=== PATIENT | female | born 1935 | race Caucasian/White ===

== ENCOUNTER → 2017-02-23 | Outpatient (CLI) | payer MEDICARE ==
--- NOTE | 2017-02-23 15:45 | CT ---
EXAM DESCRIPTION: Abdomen/Pelvis w/Contrast CLINICAL HISTORY: 81 years Female, ABD PN COMPARISON: 01 January 2012 TECHNIQUE: Transaxial images were obtained with intravenous contrast medium without oral contrast media. Sagittal and coronal reconstruction was performed.This exam was performed according to our departmental dose-optimization program, which includes automated exposure control, adjustment of the mA and/or kV according to patient size and/or use of iterative reconstruction technique. FINDINGS: Multiple bilateral lower lobe pulmonary nodules are observed and are worrisome for metastatic neoplasm. The liver and spleen are normal in appearance. No biliary ductal dilatation is observed. The gallbladder is normal in appearance. No adrenal masses are detected. The pancreas is normal in appearance. Calcific atherosclerotic changes observed in the abdominal aorta without evidence of aneurysmal dilatation. Imaging of the kidneys reveals a simple cyst of the upper pole the left kidney. No hydronephrosis or mass is detected. An ostomy is observed in the left lower quadrant. No inguinal region abnormality is seen. Degenerative changes are seen in the lumbar spine. The patient is post hysterectomy. IMPRESSION: 1. Multiple lower lobe pulmonary nodules are observed and are worrisome for metastatic neoplasm. 2. An ostomy is observed in the left lower quadrant. Electronically signed by: Ray Biswas MD 02/23/2017 3:44 PM CDT
== END | disposition home or self-care (01) ==
LOC: CT 08:36
PROVIDERS: ATTEND General Practice
DX: R10.30 Lower abdominal pain, unspecified (principal)

== ENCOUNTER → 2017-03-07 | Outpatient (CLI) | payer MEDICARE, OTHER ==
--- NOTE | 2017-03-08 08:07 | CT ---
EXAM DESCRIPTION: Chest w/Contrast CLINICAL HISTORY: 81 years, Female, PULMONARY NODULES COMPARISON: January 01, 2012 TECHNIQUE: Thin-section axial CT images are obtained during rapid bolus administration of nonionic IV contrast media. Reconstructed MPR images are created and reviewed as well. This exam was performed according to our departmental dose-optimization program, which includes automated exposure control, adjustment of the mA and/or kV according to patient size and/or use of iterative reconstruction technique. FINDINGS: Previously noted small noncalcified bilateral pulmonary nodules are essentially stable and unchanged but there are numerous small new 2 to 5 mm pulmonary nodules evident in both lungs, more numerous on the right than the left. Evolving granulomatous changes are suspected but a superimposed new process cannot be completely excluded and follow-up examination is recommended. No infiltrates or effusions or large dominant masses or significant fibrotic or bullous lung disease is seen. Soft tissue images demonstrate a normal appearance of the thoracic inlet and mediastinum and hilar structures. No abnormal adenopathy is seen. No central endobronchial mass is noted. Liver is abnormal in the upper abdomen with at least two small areas of enhancement one adjacent to the dome of the liver in the right lobe and one in the superior aspect lateral segment left lobe suspicious for subtle arterial enhancing lesions that were not evident on previous [address] or MR examination with attention to the dome of the right lobe of the liver and lateral segment left lobe of the liver recommended for further evaluation. I suspect these areas will be difficult to evaluate sonographically. A stable approximate 1.8 cm cyst arising from the upper pole of the left kidney is unchanged from prior study. IMPRESSION: 1. Persistent small less than 6 mm noncalcified nodules both lungs, unchanged from 2012 or increased in size but numerous small additional 2-5 pulmonary nodules noncalcified in each lung that have developed since 2012 examination.2017 Fleischner Society recommendations for high-risk patient with this size nodules would be to consider a [address] follow-up examination for reevaluation but because this represents interval change and development of new nodules from prior study I would suggest follow-up examination earlier at 6-9 months. 2. New small areas of abnormal hepatic enhancement in the lateral dome of the right lobe of the liver in the superior aspect of the lateral segment left lobe of the liver, not evident on prior [address] or MRI examination for further evaluation recommended. 3. No infiltrative changes effusions or large dominant masses or adenopathy is noted. 4. Stable benign cyst upper pole of the left kidney. Electronically signed by: Pola Hill MD 03/08/2017 8:05 AM CDT
== END | disposition home or self-care (01) ==
LOC: CT 08:46
PROVIDERS: ATTEND General Practice
DX: R91.8 Other nonspecific abnormal finding of lung field (principal)

== ENCOUNTER → 2017-07-16 | Outpatient (CLI) | payer OTHER ==
--- NOTE | 2017-07-16 14:50 | CT ---
EXAM DESCRIPTION: Abdomen w/wo Contrast CLINICAL HISTORY: ABNORMAL IMAGING OF LIVER COMPARISON: None. TECHNIQUE: Spiral-axial scans at 5.0 mm intervals, from the diaphragms through the upper pelvis, before and after nonionic IV contrast, in 2 phases arterial and portal venous. No oral contrast. Coronal and sagittal 2.0 mm reconstructions. 10 minute 5 mm Delayed helical scans, liver through the upper pelvis. No adverse reactions. DLP 864.21 mGy-cm. This exam was performed according to our departmental CT dose-optimization program which includes automated exposure control, adjustment of the mA and/or kV according to patient size and/or use of iterative reconstruction technique; to reduce radiation dose to as low as reasonably achievable (ALARA). FINDINGS: Lung bases and pleura: Multiple bilateral subpleural soft tissue nodules. Lung scarring. No pleural effusion. Pacing wire in the right ventricle. Liver, stomach, adrenal glands, and spleen: The arterial phase, a lateral subcapsular enhancing peripheral lesion approximately 1 cm diameter is noted near the dome of the diaphragm (series 4, image 10. At almost the same level, there is a more central lesion approximately 5 mm diameter. Oval-shaped 11 mm lesion with central bright contrast enhancement slightly more inferior (image 13). Another small punctate lesion in the lateral subcapsular right lobe (image 18). Immediately subcapsular lesions in the inferior tip of the liver laterally and posterolaterally (image 32). These lesions are less than 1 cm diameter. All lesions appear to be at equilibrium on the venous phase indistinguishable from the liver parenchyma. Also not distinguishable on the 10 minute delayed images. Small lesion less than 5 mm diameter not enhancing in the right lobe may represent a cyst but too small to be resolved by CT. No new lesion seen on the portal venous or 10-minute delayed images of the liver. Other solid organs and the stomach are unremarkable. Pancreas/Gallbladder/Ducts: Common bile duct upper normal diameter, otherwise Negative. Kidneys and Ureters: Nonenhancing 2.2 cm mass, well-defined almazan and no fatty stranding projecting from the upper pole of the left kidney with Hounsfield density ranging +20-+30 before and after IV contrast. Remainder of the kidney and the right kidney are unremarkable. Mesentery: No free air or stranding. Aorta: Moderate atherosclerotic calcification distally and minimal ectasia. Also calcification of the origins of the major vessels originating from the aorta. Small Bowel: Included segments are not distended. Terminal Ileum/Cecum: Not visualized. Colon: Included segments minimally distended by fecal material. Descending segment colostomy. No evidence of obstruction. Spine: Spondylosis L3-4 L4-5 more than L2-3 with Schmorl's node. Narrowing of foramina at L4-5. Minimal levoscoliosis. Abdominal Wall/Back Soft Tissues: Left lower quadrant colostomy site contains minimal gas within the redundant segment in the subcutaneous tissue, no significant change from the prior study. IMPRESSION: 1. At least 5 punctate enhancing lesion seen on the arterial phase in the right lobe of the liver were not well seen on the prior study, but prior study contrast images were not arterial phase. These lesions reached contrast equilibrium with the remainder of the liver on portal venous phase and 10 minute delayed view. Not visualized on precontrast images. Not typical enhancement pattern for hemangioma. Cannot rule out metastases. Consider evaluation with hepatic ultrasound. 2. Dense left renal cyst stable. 3. No free air. Free fluid or bowel obstruction. Descending segment colostomy stable. 4. Multiple bilateral soft tissue pulmonary nodules. The nodules that are visible are stable in number and size. Electronically signed by: Roberto Carlos Marie MD 07/16/2017 2:49 PM CAD ENGINEER
== END | disposition home or self-care (01) ==
LOC: CT 09:00
PROVIDERS: ATTEND General Practice
DX: R93.2 Abnormal findings on diagnostic imaging of liver and biliary tract (principal)

== ENCOUNTER → 2018-12-25 | Outpatient (CLI) | payer OTHER ==
--- NOTE | 2018-12-25 11:27 | CT ---
EXAM DESCRIPTION: Head CLINICAL HISTORY: MEMORY LOSS COMPARISON: None available TECHNIQUE: Noncontrast head CT was performed with routine protocol. FINDINGS: Normal pinedo-white matter differentiation. Ventricles and sulci are large consistent with age-related cerebral volume loss. Low density areas in the periventricular white matter indicate chronic microvascular ischemic disease. Mild motion degradation. No high density hemorrhage, focal edema or shift of the midline. No sulcal effacement. Normal orbital contents. Basilar cisterns appear clear. Intact calvarium with no fracture or lytic lesion. Normal aeration of tympanic cavities and mastoid air cells. No fluid levels in the paranasal sinuses. Skull base appears intact. Symmetrical internal auditory canals. Coronal and sagittal reformatted images confirm the findings. IMPRESSION: No acute intracranial pathologic process. This exam was performed according to our departmental dose-optimization program, which includes automated exposure control, adjustment of the mA and/or kV according to patient size and/or use of iterative reconstruction technique. Total DLP equals 859.97 mGycm. Electronically signed by: Enzo Henderson MD 12/25/2018 11:25 AM CDT
--- NOTE | 2018-12-25 15:40 | CT ---
EXAM DESCRIPTION: Abdomen/Pelvis w/Contrast CLINICAL HISTORY: 83 years Female, EPIGASTRIC COMPARISON: CT abdomen pelvis before and after contrast administration dated 07/16/2017. TECHNIQUE: Contiguous 3 mm axial images were obtained from the lung bases to the level of the proximal femora after the administration of intravenous and oral contrast. Sagittal and coronal reconstructions were reviewed. FINDINGS: THORAX: Stable multiple pulmonary nodules noted in the visualized lung bases. LIVER: The liver demonstrates normal size and density with no intrahepatic biliary ductal dilatation or focal masses. The previously questioned lesions are not definitely visualized on this examination. GALLBLADDER: Grossly unremarkable. PANCREAS: Appears normal with no cystic or solid lesions. SPLEEN: Normal ADRENAL GLANDS: Normal with no nodules or masses. KIDNEYS: Both kidneys enhance symmetrically with no hydronephrosis or nephrolithiasis or perinephric fluid collections. Stable simple cyst in the upper pole of the left kidney. No focal masses are identified. The visualized ureters appear grossly unremarkable. STOMACH: The stomach is not well-distended limiting detailed evaluation. SMALL BOWEL: The small bowel loops demonstrate variable degrees of distention with no abnormal dilatation or other signs to suggest bowel obstruction. LARGE BOWEL: Changes of left lower quadrant colostomy are identified. Large amount of fecal material is noted throughout the colon, consistent with constipation. No evidence of free intraperitoneal air or fluid. RETROPERITONEUM: The abdominal aorta is nonaneurysmal with moderate atherosclerosis. The inferior vena cava is normal in size and caliber. No abnormally enlarged retroperitoneal lymph nodes are identified. URINARY BLADDER:The urinary bladder is well-distended with no gross abnormality. The uterus and ovaries are surgically absent. ADDITIONAL FINDINGS: None. BONES: Mild degenerative changes are identified in the visualized bones.No evidence of osteophytic or osteoblastic lesions. IMPRESSION: 1. Stable multiple pulmonary nodules in the visualized lung bases compared to prior CT dated 07/16/2017. 2. No acute intra-abdominal or intrapelvic process is noted. 3. Constipation. This exam was performed according to our departmental dose-optimization program, which includes automated exposure control, adjustment of the mA and/or kV according to patient size and/or use of iterative reconstruction technique. Electronically signed by: Vianey Rae MD 12/25/2018 3:38 PM CDT
== END ==
LOC: CT 09:13
PROVIDERS: ATTEND General Practice
DX: K59.00 Constipation, unspecified (principal); G31.84 Mild cognitive impairment of uncertain or unknown etiology; R41.3 Other amnesia

== ENCOUNTER → 2019-07-18 | Outpatient (CLI) | payer OTHER ==
--- NOTE | 2019-07-18 14:51 | CT ---
EXAM DESCRIPTION: Head CLINICAL HISTORY: Altered mental status COMPARISON: 25 December 2018 TECHNIQUE: Non contrast cranial CT.This exam was performed according to our departmental dose-optimization program, which includes automated exposure control, adjustment of the mA and/or kV according to patient size and/or use of iterative reconstruction technique. FINDINGS: Periventricular white matter low-attenuation is observed consistent with ischemic demyelination. Its mildly advanced for age. There is a lacunar infarct in the left caudate head. No mass lesions or mass effect are observed. No intracranial hemorrhage is noted. The paranasal sinuses and orbits as imaged are normal. The mastoid sinus air cells are clear. IMPRESSION: Senescent changes are observed. No acute intracranial pathology is detected. Electronically signed by: Ray Biswas MD 07/18/2019 2:49 PM [facility]
== END ==
LOC: CT 13:51
PROVIDERS: ATTEND General Practice
DX: R41.82 Altered mental status, unspecified (principal); R51 Headache; R55 Syncope and collapse

== ENCOUNTER 2020-06-21 18:56 | Emergency (ER) | payer OTHER ==
--- NOTE | 2020-06-21 20:47 | RAD ---
EXAM: Chest,1 View CLINICAL INDICATION: COVID-19 COMPARISON: There is no previous study for comparison. FINDINGS: A single view of the chest was obtained. The heart size is normal. The pulmonary vascularity is unremarkable. The lungs are clear. There is no consolidation, infiltrate, pleural effusion, or pneumothorax. There is a left-sided pacemaker. IMPRESSION: No evidence of active pulmonary disease. Electronically signed by: Felix Resendez MD 06/21/2020 8:45 PM ABSORPTION AND ADSORPTION ENGINEER
[2020-06-21] MEDS ORDERED: AZITHROMYCIN 250 MG TAB PO ONE (21:01)
[2020-06-21] MEDS ORDERED: DEXAMETHASONE 4 MG TAB PO ONE (21:01)
[2020-06-21] MEDS ORDERED: SODIUM CHLORIDE 0.9% 1000ML 1,000 ML IVS ONE (21:02)
[2020-06-21] MEDS ORDERED: POTASSIUM CHLORIDE ELIXIR 20 MEQ/15 ML UD PO ONE (21:02)
--- NOTE | 2020-06-21 21:45 | ED.PDOC ---
History of Present Illness - General Chief Complaint: General Stated Complaint: COVID Time Seen by Provider: 06/21/20 20:05 Source: [facility] records Exam Limitations: clinical condition - History of Present Illness Initial Comments: The patient is an 85-year-old female presented to the emergency room secondary to being found coronavirus positive on a swab today. The patient is resting comfortably and appears to be in no distress. Lung shanks are largely clear. Pulse oximetry on the patient is here shows an oxygen saturation around 95%. She does show desaturations on her fingers due to them being cold. The patient is largely nonresponsive to my verbal cues except she will look at me. The patient does not speak to me. She does move all extremities. She does appear very weak and frail. She is known to have advanced dementia. I did have a chance to discuss the patient with her daughter, Digna Garcia. She has discussed the patient's condition with the family and they have elected to continue comfort care with what oral medications the patient is able to get down. Based on the patient's cooperation taking medications here today it is highly likely she is taking very little oral intake both in pill form and in liquid form. The patient has significant wasting. She is on hospice. As far as I can tell the patient is asymptomatic from the coronavirus. Timing/Duration: unsure Severity: mild Allergies/Adverse Reactions: Allergies NO KNOWN ALLERGY Allergy (Verified 06/21/20 20:45) Home Medications: Ambulatory Orders Azithromycin Tab [Zithromax Tab] 250 mg PO QDAC #5 tab 06/21/20 Dexamethasone Tab [Decadron Tab] 4 mg PO DAILY #7 tab 06/21/20 Potassium Chloride [Potassium Chloride ER] 20 meq PO DAILY #14 tab 06/21/20 Review of Systems - Review of Systems Review of Systems: 06/21/20 21:45 Patient is unable to give a review of systems. Past Medical History (General) - Patient Medical History Hx Cardiac Disorders: Yes - CAD Hx Congestive Heart Failure: No Hx Hypertension: Yes Hx Gastroesophageal Reflux: Yes - Vaccination History Hx Influenza Vaccination: Yes Hx Pneumococcal Vaccination: Yes - Social History Hx Tobacco Use: No Hx Alcohol Use: No - Activities of Daily Living Long Term/Assisted Living (if applicable):: [facility] (if applicable):: [facility] Family Medical History - Family History Mother Family History: Unknown Physical Exam - Physical Exam General Appearance: Alert, Frail, No apparent distress Eye Exam: bilateral normal Ears, Nose, Throat: other - The patient does orient to sound. Mucous membranes are mildly dry. Nares are clear. Neck: non-tender Respiratory: lungs clear, normal breath sounds, no respiratory distress, no accessory muscle use Cardiovascular/Chest: normal peripheral pulses, no edema, other - Regular rate and rhythm Peripheral Pulses: radial,right: 2+, radial,left: 2+ Gastrointestinal/Abdominal: soft, other - No evidence of discomfort to palpation. Rectal Exam: deferred Extremity: non-tender, no pedal edema, normal capillary refill Neurologic: alert, disoriented x 3 Skin Exam: pallor Comments: Vital Signs - 24 hr 06/21/20 06/21/20 20:07 20:30 Temperature 98.5 F Pulse Rate [ 95 H 95 H monitor] Respiratory 14 19 Rate Blood Pressure 107/70 124/68 [Left Arm] O2 Sat by Pulse 85 L 96 Oximetry Progress - Progress Progress: 06/21/20 21:49 The patient is an 85-year-old female presented emergency room in no acute distress secondary to a new coronavirus diagnosis. The patient is on hospice for her dementia. I have discussed the patient with her daughter, Digna Garcia. She has in turn discussed the patient with other family members. They have elected to not pursue aggressive treatment which I believe is highly reasonable given her longer term problems. I cannot tell that the patient is significantly symptomatic from the coronavirus at this point. The patient does have significant dehydration likely related to poor oral intake related to her dementia. She is receiving a liter of IV fluids here. Additionally she has a low potassium and was given a dose of oral potassium. She will be written for an oral potassium supplement for the next few weeks. Additionally for the coronavirus, as likely is anything for preventive measures, the patient is going to be placed on low-dose oral azithromycin and dexamethasone. I am uncertain how cooperative the patient is going to be with taking her medications as she is only moderately cooperative here. The patient is actually not hypoxic. Pulse oximetry reads much better on the earlobes on the patient. In general, comfort care is most appropriate for this patient and her advanced state of dementia. The patient is going to be sent to [facility] in [place]. ER warnings are given for any acute worsening. [email or web address] - Results/Orders Results/Orders: EKG shows normal sinus rhythm at 93 bpm. Mild right axis deviation. Criteria is present for LVH. No definitive ST segment or T wave changes indicative of acute ischemia. Chest x-ray is clear. No evidence of acute infiltrates. Pacemaker is in place. Laboratory Results - last 24 hr 06/21/20 06/21/20 06/21/20 20:20 20:20 20:20 WBC 5.0 RBC 5.42 H Hgb 15.7 Hct 48.3 H MCV 89.3 MCH 29.0 MCHC 32.5 L RDW 13.4 Plt Count 236 MPV 8.6 Absolute Neuts (auto) 3.30 Absolute Lymphs (auto) 1.30 Absolute Monos (auto) 0.50 Absolute Eos (auto) 0.00 Absolute Basos (auto) 0.00 Neutrophils % 65.2 Lymphocytes % 25.1 Monocytes % 9.1 H Eosinophils % 0.1 L Basophils % 0.5 PT 10.0 INR 1.01 PTT (SP) 25.8 Fibrinogen 418 H D-Dimer, Quantitative 2140.0 H* Sodium Potassium Chloride Carbon Dioxide Anion Gap BUN Creatinine BUN/Creatinine Ratio Random Glucose Serum Osmolality Lactic Acid Calcium Magnesium Ferritin 149.8 Total Bilirubin AST ALT Alkaline Phosphatase LD Total C-Reactive Protein Serum Total Protein Albumin Globulin Albumin/Globulin Ratio 06/21/20 06/21/20 20:20 20:20 WBC RBC Hgb Hct MCV MCH MCHC RDW Plt Count MPV Absolute Neuts (auto) Absolute Lymphs (auto) Absolute Monos (auto) Absolute Eos (auto) Absolute Basos (auto) Neutrophils % Lymphocytes % Monocytes % Eosinophils % Basophils % PT INR PTT (SP) Fibrinogen D-Dimer, Quantitative Sodium 153 H Potassium 2.7 L Chloride 104 Carbon Dioxide 34 H Anion Gap 17.7 BUN 28 H Creatinine 0.94 BUN/Creatinine Ratio 29.8 H Random Glucose 127 H Serum Osmolality 310.6 H Lactic Acid 2.0 Calcium 9.9 Magnesium 2.1 Ferritin Total Bilirubin 0.9 AST 47 H ALT < 7 L Alkaline Phosphatase 44 LD Total 287 H C-Reactive Protein 4.7 H Serum Total Protein 6.8 Albumin 3.7 Globulin 3.1 Albumin/Globulin Ratio 1.2 Departure - Departure Clinical Impression: COVID-19 virus infection, Dehydration, Hypokalemia Disposition: Discharge to [facility] Condition: Poor Departure Forms: ED Discharge - Pt. Copy, Patient Portal Self Enrollment Instructions: Coronavirus Disease 2019 (COVID-19) Diet: bland diet Activity: increase activity as tolerated Referrals: DEEPA GUZMÁN [Primary Care Provider] - 1-2 Weeks Prescriptions: Dexamethasone Tab [Decadron Tab] 4 mg PO DAILY #7 tab Potassium Chloride [Potassium Chloride ER] 20 meq PO DAILY #14 tab Azithromycin Tab [Zithromax Tab] 250 mg PO QDAC #5 tab Home Medications: Ambulatory Orders Azithromycin Tab [Zithromax Tab] 250 mg PO QDAC #5 tab 06/21/20 Dexamethasone Tab [Decadron Tab] 4 mg PO DAILY #7 tab 06/21/20 Potassium Chloride [Potassium Chloride ER] 20 meq PO DAILY #14 tab 06/21/20 Comments: The patient is an 85-year-old female presented emergency room in no acute distress secondary to a new coronavirus diagnosis. The patient is on hospice for her dementia. I have discussed the patient with her daughter, Digna Garcia. She has in turn discussed the patient with other family members. They have elected to not pursue aggressive treatment which I believe i s highly reasonable given her longer term problems. I cannot tell that the patient is significantly symptomatic from the coronavirus at this point. The patient does have significant dehydration likely related to poor oral intake related to her dementia. She is receiving a liter of IV fluids here. Additionally she has a low potassium and was given a dose of oral potassium. She will be written for an oral potassium supplement for the next few weeks. Additionally for the coronavirus, as likely is anything for preventive measures, the patient is going to be placed on low-dose oral azithromycin and dexamethasone. I am uncertain how cooperative the patient is going to be with taking her medications as she is only moderately cooperative here. The patient is actually not hypoxic. Pulse oximetry reads much better on the earlobes on the patient. In general, comfort care is most appropriate for this patient and her advanced state of dementia. The patient is going to be sent to [facility] in [place]. ER warnings are given for any acute worsening.
[2020-06-21 22:49] VITALS: O2SAT 95
[2020-06-21 23:36] VITALS: TEMP 97.6
[2020-06-21 23:37] VITALS: BP 131/71
== END 2020-06-21 23:37 ==
LOC: ER 18:56
DX: U07.1 COVID-19 (principal); E86.0 Dehydration; E87.6 Hypokalemia; F03.90 Unspecified dementia, unspecified severity, without behavioral disturbance, psychotic disturbance, mood disturbance, and anxiety; K21.9 Gastro-esophageal reflux disease without esophagitis; I10 Essential (primary) hypertension; I25.10 Atherosclerotic heart disease of native coronary artery without angina pectoris
CPT/HCPCS: 36415; 71045; 80053; 82728; 83605; 83615; 83735; 85025; 85379; 85384; 85610; 85730; 86140; 93005; J7030; J8540; Q0144